=== PATIENT | female | born 1930 | race Caucasian/White ===

== ENCOUNTER 2017-10-20 22:59 | Emergency (ER) | payer OTHER ==
[~2017-10-20] VITALS: Ht 147.3 cm; Wt 37.2 kg
[2017-10-20 23:03] VITALS: BP_SYST 153
--- NOTE | 2017-10-20 23:12 | NUR ---
Patient to ER bed 4 to gown for evaluation. Side rails up. Report given to IWONA MARINA.
--- NOTE | 2017-10-20 23:14 | NUR ---
Patient brought in with daughter and son. Patient reports that she was bit by bugs yesterday. Patient has swelling to the left side of her jaw as well as two bug bites on her right leg. Denies any pain. Denies any difficulty swallowing and difficulty breathing. No other complaints/injuries per patient or as noted. Will continue to monitor.
--- NOTE | 2017-10-20 23:15 | NUR ---
MELIDA Dempsey at bedside examining patient.
[2017-10-20] MEDS ORDERED: methylPREDNISolone SOD SUCC/PF 62.5 MG/ML VIAL IM ONE (23:30)
--- NOTE | 2017-10-20 23:31 | NUR ---
Patient medicated per MD orders. Patient tolerated well.
[2017-10-21] MEDS ORDERED: DIPHENHYDRAMINE HCL 25 MG CAPSULE PO ONE (00:15)
[2017-10-21 00:31] VITALS: BP_SYST 146
--- NOTE | 2017-10-21 00:31 | NUR ---
Patient given written and verbal discharge instructions and verbalizes understanding. ER MD discussed with patient the results and treatment provided. Patient in stable condition. ID arm band removed. Rx of Prednisone and Benadryl given. Patient educated on pain management and to follow up with PMD in 2-3 days. Pain Scale 0/10 Opportunity for questions provided and answered. Medication side effect fact sheet provided.
== END 2017-10-21 00:31 | disposition home or self-care (01) ==
LOC: SED 22:59
DX: S00.561A Insect bite (nonvenomous) of lip, initial encounter (principal); S80.861A Insect bite (nonvenomous), right lower leg, initial encounter; R22.0 Localized swelling, mass and lump, head; I10 Essential (primary) hypertension; Z90.710 Acquired absence of both cervix and uterus; W57.XXXA Bitten or stung by nonvenomous insect and other nonvenomous arthropods, initial encounter; Y93.89 Activity, other specified; Y92.89 Other specified places as the place of occurrence of the external cause; Y99.8 Other external cause status
CPT/HCPCS: 96372; 99283; J2930; Q0163